=== PATIENT | female | born 1955 | race African-American/Black ===

== ENCOUNTER → 2017-02-23 | Day surgery (SDC) | payer BC ==
[~2017-02-23] MED LIST: ACTOS15 MG PO; LEVO-T200 MCG PO; LOSARTAN-HCTZ1 EACH PO; TRESIBA FL100 UNIT/1 SUBQ
--- NOTE | ~2017-02-23 | OR ---
Unit #: [id number] #: [id number] Patient: GULSHAN ALEJANDRA [id number] [address] [place], [place] [address] [id number] MR#: [id number] NAME: GULSHAN ALEJANDRA ROOM: Date of Procedure: 02/23/2017 Admission Date: 02/23/2017 Surgeon: Shad Craig M.D. : 1955 Attending Physician: Shad Craig M.D. Referring Physician: Shad Craig M.D. Primary Care Physician: Tej Chase M.D. OPERATIVE REPORT PREOPERATIVE DIAGNOSIS Colorectal cancer screening in an average-risk patient. PROCEDURE PERFORMED Colonoscopy up to cecum and terminal ileum with excellent preparation and good visualization. POSTOPERATIVE DIAGNOSES Completely normal examination up to cecum and terminal ileum. The quality of the prep was excellent. The patient did not have any polyps nor any diverticula or hemorrhoids. RECOMMENDATIONS Repeat colonoscopy in 10 years. SEDATION USED MAC. DESCRIPTION OF PROCEDURE Following detailed explanation of the potential risks and complications of a colonoscopy, namely perforation, bleeding, and complications related to sedation, the patient was brought to GI lab and laid in the left lateral decubitus position. A digital rectal examination was performed, which was normal. Lubricated tip of the Olympus video colonoscope was inserted through the anus and advanced under direct vision. The scope was advanced past rectosigmoid into descending colon. No diverticula were noted in this area. The scope tip was then navigated all the way up to cecum with visualization of the ileocecal valve and the appendiceal orifice. Preparation was excellent with good visualization and photodocumentation was obtained. Last several inches of the terminal ileum were also visualized after intubation of the ileocecal valve and appeared normal. Successive segments of the colonic mucosa were examined upon withdrawal and appeared unremarkable. There being no polyps, mass lesions, AVMs, or diverticula. The patient did not have any hemorrhoids at anal verge. The scope was then withdrawn and the patient returned to the recovery area. She tolerated the procedure without any postprocedure complications. Dictated by... Shad Craig M.D. AK/maryl Unit #: [id number] #: [id number] Patient: GULSHAN ALEJANDRA TD: 02/23/2017 12:52 JOB #: [id number] OPERATIVE REPORT Page 1 of 1 X Shad Craig MD PROCEDURE OPERATIVE NOTE
== END | disposition home or self-care (01) ==
LOC: COPS 02-18 11:00
DX: Z12.11 Encounter for screening for malignant neoplasm of colon (principal); E11.9 Type 2 diabetes mellitus without complications; I10 Essential (primary) hypertension; E03.9 Hypothyroidism, unspecified; Z98.890 Other specified postprocedural states; Z79.4 Long term (current) use of insulin; Z79.899 Other long term (current) drug therapy
CPT/HCPCS: 82947; J2250